=== PATIENT | male | born 1985 | race Caucasian/White ===

== ENCOUNTER 2020-10-27 03:06 | Emergency (ER) | payer OTHER, MEDICAID ==
[~2020-10-27] VITALS: Ht 177.8 cm; Wt 108.5 kg
[2020-10-27 07:23] VITALS: BP 149/70
== END 2020-10-27 07:26 | disposition home or self-care (01) ==
LOC: ED 06:01
DX: G89.11 Acute pain due to trauma (principal); G44.319 Acute post-traumatic headache, not intractable; M54.2 Cervicalgia; M54.5 Low back pain; M25.512 Pain in left shoulder; M25.511 Pain in right shoulder; F17.200 Nicotine dependence, unspecified, uncomplicated; X58.XXXA Exposure to other specified factors, initial encounter; Y93.89 Activity, other specified; Y92.89 Other specified places as the place of occurrence of the external cause; Y99.8 Other external cause status
CPT/HCPCS: 70450; 72072; 72110; 72125; 99285